=== PATIENT | female | born 1960 | race Caucasian/White ===

== ENCOUNTER 2018-11-09 11:54 | Emergency (ER) | payer MEDICAID, OTHER ==
[2018-11-09] MEDS ORDERED: NS 1,000 ML IV ONE (12:42)
[2018-11-09] MEDS ORDERED: IBUPROFEN 600 MG TAB PO ONE (12:43)
[2018-11-09] MEDS ORDERED: ACETAMINOPHEN 500 MG TAB ONE (12:43)
[2018-11-09] MEDS ORDERED: ACETAMINOPHEN 500 MG TAB PO ONE (12:43)
--- NOTE | 2018-11-09 12:47 | EDPHY ---
H & P Stated Complaint: fever Time Seen by Provider: 11/09/18 12:38 HPI/ROS: CHIEF COMPLAINT: Fever and body aches HISTORY OF PRESENT ILLNESS: Patient is a 58-year-old Slovak-speaking female who comes to the emergency department complaining of a fever that began on Sunday. She also had some dysuria initially as well as body aches. Her dysuria improved but she is still having a fever and body aches. No nausea vomiting. She does feel slightly bloated. She states that on Sunday she ate some red meat that was possibly undercooked. No diarrhea. No rashes. No cough. No shortness of breath. No upper respiratory symptoms. Mild headache yesterday but currently none. No flank pain. Severity: Moderate Modifying factors: Improves with fluids REVIEW OF SYSTEMS: Constitutional: See HPI EENTM: denies: blurred vision, double vision, nose congestion Respiratory: denies: cough, shortness of breath Cardiac: denies: chest pain, irregular heart rate, lightheadedness, palpitations Gastrointestinal/Abdominal: See HPI denies: abdominal pain, diarrhea, nausea, vomiting, blood streaked stools Genitourinary: denies: dysuria, frequency, hematuria, pain Musculoskeletal: See HPI Skin: denies: lesions, rash, jaundice, bruising Neurological: See HPI Hematologic/Lymphatic: denies: blood clots, easy bleeding, easy bruising Immunologic/allergic: denies: HIV/AIDS, transplant 10 systems reviewed and negative except as noted EXAM: GENERAL: Well-appearing, well-nourished and in no acute distress. HEAD: Atraumatic, normocephalic. EYES: Pupils equal round and reactive to light, extraocular movements intact, sclera anicteric, conjunctiva are normal. ENT: TMs normal, nares patent, oropharynx clear without exudates. Moist mucous membranes. NECK: Normal range of motion, supple without lymphadenopathy or JVD. LUNGS: Breath sounds clear to auscultation bilaterally and equal. No wheezes rales or rhonchi. HEART: Regular rate and rhythm without murmurs, rubs or gallops. ABDOMEN: Soft, nontender, normoactive bowel sounds. No guarding, no rebound. No masses appreciated. BACK: No CVA tenderness, no spinal tenderness, step-offs or deformities EXTREMITIES: Normal range of motion, no pitting or edema. No clubbing or cyanosis. NEUROLOGICAL: Cranial nerves II through XII grossly intact. Normal speech, normal gait. 5/5 strength, normal movement in all extremities, normal sensation , normal reflexes PSYCH: Normal mood, normal affect. SKIN: Warm, dry, normal turgor, no visible rashes or lesions. Source: Patient Exam Limitations: No limitations - Personal History Current Tetanus/Diphtheria Vaccine: Unsure Current Tetanus Diphtheria and Acellular Pertussis (TDAP): Unsure - Medical/Surgical History Hx Asthma: No Hx Chronic Respiratory Disease: No Hx Diabetes: No Hx Cardiac Disease: No Hx Renal Disease: No Hx Cirrhosis: No Hx Alcoholism: No Hx HIV/AIDS: No Hx Splenectomy or Spleen Trauma: No Other PMH: MEDICAL NONE. SURGERY NONE - Family History Significant Family History: No pertinent family hx - Social History Smoking Status: Never smoked Alcohol Use: Sober Drug Use: None Constitutional: Initial Vital Signs Temperature (C) 39.1 C H 11/09/18 11:57 Heart Rate 124 H 11/09/18 11:57 Respiratory Rate 20 11/09/18 11:57 Blood Pressure 135/85 H 11/09/18 11:57 O2 Sat (%) 95 11/09/18 11:57 O2 Delivery Mode Room Air Allergies/Adverse Reactions: Penicillins Allergy (Verified 11/09/18 12:01) Home Medications: Medication Instructions Recorded Cephalexin [Keflex] 500 mg PO TID #21 cap 11/09/18 Phenazopyridine HCl [Pyridium] 200 mg PO TID #6 tab 11/09/18 Medical Decision Making ED Course/Re-evaluation: 1:30 p.m. the patient clearly has urinary tract infection and likely pyelonephritis. Her heart rate is improved with fever control. She has been hydrated. She will receive IV antibiotics. She is very eager to go home the and does not wish to stay in the hospital. I do think that she will do okay. We discussed return precautions. Differential Diagnosis: Partial list of the Differential diagnosis considered include but were not limited to; urinary tract infection, pyelonephritis, sepsis and although unlikely based on the history and physical exam, I also considered pneumonia, meningitis, influenza. - Data Points Laboratory Results: Laboratory Results 11/09/18 12:25 11/09/18 12:25 11/09/18 11/09/18 11/09/18 Unknown 13:35 12:25 WBC RBC Hgb Hct MCV MCH MCHC RDW Plt Count MPV Neut % (Auto) Lymph % (Auto) Hale % (Auto) Eos % (Auto) Baso % (Auto) Nucleat RBC Rel Count Absolute Neuts (auto) Absolute Lymphs (auto) Absolute Monos (auto) Absolute Eos (auto) Absolute Basos (auto) Absolute Nucleated RBC Immature Gran % Immature Gran # PT INR APTT VBG Lactic Acid 0.9 mmol/L mmol/L (0.7-2.1) Sodium 128 mEq/L L mEq/L (135-145) Potassium 3.9 mEq/L mEq/L (3.5-5.2) Chloride 93 mEq/L L mEq/L (97-110) Carbon Dioxide 22 mEq/l mEq/l (22-31) Anion Gap 13 mEq/L mEq/L (6-14) BUN 12 mg/dL mg/dL (7-23) Creatinine 0.8 mg/dL mg/dL (0.6-1.0) Estimated GFR > 60 Glucose 125 mg/dL H mg/dL (70-100) Calcium 8.1 mg/dL L mg/dL (8.5-10.4) Total Bilirubin 1.4 mg/dL mg/dL (0.1-1.4) Urine Color YELLOW Urine Appearance HAZY Urine pH 6.0 (5.0-7.5) Ur Specific [place] 1.011 (1.002-1.030) Urine Protein 1+ H (NEGATIVE) Urine Ketones NEGATIVE (NEGATIVE) Urine Blood 2+ H (NEGATIVE) Urine Nitrate NEGATIVE (NEGATIVE) Urine Bilirubin NEGATIVE (NEGATIVE) Urine Urobilinogen 4.0 EU H EU (0.2-1.0) Ur Leukocyte Esterase 2+ H (NEGATIVE) Urine RBC 15-25 /hpf H /hpf (0-3) Urine WBC 50-182 /hpf H /hpf (0-3) Ur Epithelial Cells TRACE /lpf /lpf (NONE-1+) Urine Bacteria 3+ /hpf H /hpf (NONE SEEN) Urine Glucose 1+ H (NEGATIVE) 11/09/18 11/09/18 12:25 12:25 WBC 15.51 10^3/uL H 10^3/uL (3.80-9.50) RBC 5.20 10^6/uL 10^6/uL (4.18-5.33) Hgb 14.2 g/dL g/dL (12.6-16.3) Hct 41.7 % % (38.0-47.0) MCV 80.2 fL L fL (81.5-99.8) MCH 27.3 pg L pg (27.9-34.1) MCHC 34.1 g/dL g/dL (32.4-36.7) RDW 13.2 % % (11.5-15.2) Plt Count 200 10^3/uL 10^3/uL (150-400) MPV 11.7 fL fL (8.7-11.7) Neut % (Auto) 85.7 % H % (39.3-74.2) Lymph % (Auto) 4.0 % L % (15.0-45.0) Hale % (Auto) 9.2 % % (4.5-13.0) Eos % (Auto) 0.1 % L % (0.6-7.6) Baso % (Auto) 0.2 % L % (0.3-1.7) Nucleat RBC Rel Count 0.0 % % (0.0-0.2) Absolute Neuts (auto) 13.30 10^3/uL H 10^3/uL (1.70-6.50) Absolute Lymphs (auto) 0.62 10^3/uL L 10^3/uL (1.00-3.00) Absolute Monos (auto) 1.43 10^3/uL H 10^3/uL (0.30-0.80) Absolute Eos (auto) 0.01 10^3/uL L 10^3/uL (0.03-0.40) Absolute Basos (auto) 0.03 10^3/uL 10^3/uL (0.02-0.10) Absolute Nucleated RBC 0.00 10^3/uL 10^3/uL (0-0.01) Immature Gran % 0.8 % % (0.0-1.1) Immature Gran # 0.12 10^3/uL H 10^3/uL (0.00-0.10) PT 13.4 SEC SEC (12.0-15.0) INR 1.06 (0.83-1.16) APTT 31.4 SEC SEC (23.0-38.0) VBG Lactic Acid Sodium Potassium Chloride Carbon Dioxide Anion Gap BUN Creatinine Estimated GFR Glucose Calcium Total Bilirubin Urine Color Urine Appearance Urine pH Ur Specific [place] Urine Protein Urine Ketones Urine Blood Urine Nitrate Urine Bilirubin Urine Urobilinogen Ur Leukocyte Esterase Urine RBC Urine WBC Ur Epithelial Cells Urine Bacteria Urine Glucose Medications Given: Discontinued Medications Acetaminophen (Tylenol) 1,000 mg PO EDNOW ONE Stop: 11/09/18 12:44 Last Admin: 11/09/18 12:59 Dose: 1,000 mg Sodium Chloride (Ns) 1,000 mls @ 0 mls/hr IV ONCE ONE; Wide Open PRN Reason: Protocol Stop: 11/09/18 12:43 Last Admin: 11/09/18 12:59 Dose: 1,000 mls Ceftriaxone Sodium/Dextrose (Rocephin 1 Gm (Premix)) 50 mls @ 100 mls/hr IV EDNOW ONE PRN Reason: Protocol Stop: 11/09/18 14:02 Last Admin: 11/09/18 13:41 Dose: 50 mls Ibuprofen (Motrin) 600 mg PO EDNOW ONE Stop: 11/09/18 12:44 Last Admin: 11/09/18 12:58 Dose: 600 mg Departure - Departure Disposition: Home, Routine, Self-Care Clinical Impression: Urinary tract infection Qualifiers: Urinary tract infection type: acute pyelonephritis Qualified Code(s): N10 - Acute pyelonephritis Fever Qualifiers: Fever type: unspecified Qualified Code(s): R50.9 - Fever, unspecified Condition: Fair Instructions: Urinary Tract Infection in Women (ED) Additional Instructions: jody medicamentos nuevos son: Cephalexin [Keflex] 500 miligramos oral, mirna veces por lui se (antibiotico) Phenazopyridine HCl [Pyridium] 200 milligramos oral, sho veces por luis e (trata irritacion por infeccion de tracto urinario)) Referrals: NONE *PRIMARY CARE P,. [Primary Care Provider] - As per Instructions [facility],. [Clinic] - As per Instructions Prescriptions: Cephalexin [Keflex] 500 mg PO TID #21 cap Phenazopyridine HCl [Pyridium] 200 mg PO TID #6 tab
[2018-11-09 12:50] LABS: PLATELET COUNT 200 10^3/uL (150-400)
[2018-11-09 13:00] LABS: INR 1.06 (0.83-1.16); PROTIME(PATIENT) 13.4 SEC (12.0-15.0)
[2018-11-09 13:26] VITALS: BP 125/78
== END 2018-11-09 14:19 | disposition home or self-care (01) ==
DX: N39.0 Urinary tract infection, site not specified (principal); N10 Acute pyelonephritis; R50.9 Fever, unspecified; E86.9 Volume depletion, unspecified
CPT/HCPCS: 96365; J0696